=== PATIENT | female | born 1965 | race Caucasian/White ===

== ENCOUNTER 2017-03-03 08:15 | Observation (INO) | payer OTHER ==
[~2017-03-03] VITALS: Ht 162.6 cm; Wt 95.0 kg
[2017-03-03] VITALS (7 sets, daily range): BP systolic 111–184; BP diastolic 58–96; PULSE 64–75; RESP 15–21; TEMP 97.8–98.3; O2SAT 96–100
[~2017-03-03 08:15] MED LIST: ALPR-138 PO; MMW SS; PROZ40CA PO; SYNT50TA PO
--- NOTE | 2017-03-03 09:39 | PD ---
HPI Chief Complaint: Headache Time Seen by Provider: 09:27 Travel History International Travel<30 days: No Contact w/Intl Traveler<30days: No Traveled to known affect area: No History of Present Illness HPI 51yo F with PMH of factor V leiden deficiency presents to the ED with c/o right sided headache since yesterday. She woke up at 5am this morning and had "garbled speech" and difficulty articulating what she wanted to say. States this lasted about an hour and a half. Also had tingling in right face at the time. She went to bed normal last night. 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 She is suppose to be on thyroid medication but does not take it. Denies any focal weakness, chest pain, sob, n/v, abdominal pain or changes in vision. PFSH Past Medical History Depression: Yes COPD: Yes (CHRONIC BRONCHITIS) Diminished Hearing: No Menopausal: Yes : 3 Para: 1 Miscarriage: 1 : 1 Ovarian Cysts: Yes Social History Alcohol Use: Yes (OCCASIONAL) Tobacco Use: No (PT REPORTS SHE QUIT 4 MONTHS) Substance Use: No Allergies-Medications (Allergen,Severity, Reaction): Coded Allergies: Sulfa (Verified Allergy, Severe, 01/19/14) Reported Meds & Prescriptions Reported Meds & Active Scripts Active Magic Mouthwash-Diphenhy Formula (Lidocaine/Diphenhydr/Alum/Mg/Simeth) Ml 10 Ml SS Q3H PRN MAGIC MOUTHWASH=MIX 1/3 VISCOUS LIDOCAINE(60 ML),1/3 MAALOX(60 ML), AND 1/3 BENADRYL(60 ML) TO EQUAL 180 ML TOTAL VOLUME Reported Synthroid (Levothyroxine Sodium) 50 Mcg Tab 50 Mcg PO DAILY Prozac (Fluoxetine HCl) 40 Mg Cap 60 Mg PO DAILY Xanax (Alprazolam) 0.25 Mg Tab 0.25 Mg PO DAILYPRN Review of Systems Except as stated in HPI: all other systems reviewed are Neg Physical Exam Narrative GENERAL: 51yo F not in distress. SKIN: Focused skin assessment warm/dry. HEAD: Atraumatic. Normocephalic. EYES: Pupils equal and round at 4mm bilaterally. EOMI. No scleral icterus. No injection or drainage. ENT: No nasal bleeding or discharge. Mucous membranes pink and moist. NECK: Trachea midline. No JVD. CARDIOVASCULAR: Regular rate and rhythm. No murmur appreciated. RESPIRATORY: No accessory muscle use. Clear to auscultation. Breath sounds equal bilaterally. GASTROINTESTINAL: Abdomen soft, non-tender, nondistended. No rebound tenderness or guarding. MUSCULOSKELETAL: No obvious deformities. No clubbing. No cyanosis. No edema. NEUROLOGICAL: Awake and alert. No obvious cranial nerve deficits. Motor grossly within normal limits. Normal speech. NIH stroke scale 0 now. PSYCHIATRIC: Appropriate mood and affect; insight and judgment normal. Data Data Last Documented VS Vital Signs Date Time Temp Pulse Resp B/P Pulse Ox O2 Delivery O2 Flow Rate FiO2 03/03/17 10:30 70 16 141/83 100 Room Air 03/03/17 08:[address] Brain W/O Iv Contrast(Rout) (03/03/17 ) Complete Blood Count With Diff (03/03/17 09:34) Basic Metabolic Panel (Bmp) (03/03/17 09:34) Prothrombin Time / Inr (Pt) (03/03/17 09:34) Act Partial Throm Time (Ptt) (03/03/17 09:34) Electrocardiogram (03/03/17 ) Acetaminophen (Tylenol) (03/03/17 11:15) Code Status (03/03/17 11:30) Vital Signs (Adult) Q4H (03/03/17 11:30) Activity Oob With Assistance (03/03/17 11:30) Neurosurgical Nurse / Telemetry .CONTINUOUS (03/03/17 11:30) Diet Regular Basic (03/03/17 Lunch) Sodium Chloride 0.9% Flush (Ns Flush) (03/03/17 11:30) Sodium Chloride 0.9% Flush (Ns Flush) (03/03/17 21:00) Acetaminophen (Tylenol) (03/03/17 11:30) Ondansetron Inj (Zofran Inj) (03/03/17 11:30) Basic Metabolic Panel (Bmp) (03/04/17 06:00) Complete Blood Count With Diff (03/04/17 06:00) Chest, Single Ap (03/03/17 11:30) Pt Request For Service (03/03/17 11:30) Scd Bilateral/Knee High BAUDILIO.BID (03/03/17 11:30) Naloxone Inj (Narcan Inj) (03/03/17 11:30) Magnesium Hydroxide Liq (Milk Of Magnesi (03/03/17 11:30) Beta Hcg (Quant/Titer) (03/03/17 11:30) Consult Neurology (03/03/17 ) Nih Stroke Scale - Nihss .On admission and discharge (03/03/17 11:37) Activity Bed Rest (03/03/17 11:37) Nursing Bedside Swallow Assess .ONCE (03/03/17 11:37) Hemoglobin (Hgb) A1c (03/03/17 11:37) Lipid Profile (03/04/17 06:00) Us Carotid Arteries Comp Bilat (03/03/17 ) Holter Monitor Recording (03/03/17 ) Mra Brain W/O Contrast (Cow) (03/03/17 ) Mri Brain W/O Contrast (03/03/17 ) Enalaprilat Inj (Vasotec Inj) (03/03/17 11:45) Aspirin Chew (Aspirin Chew) (03/03/17 11:45) Admit Order (Ed Use Only) (03/03/17 11:49) Echo 2d Comp With Doppler (03/04/17 ) Labs Laboratory Tests Test 03/03/17 09:55 White Blood Count 5.1 TH/MM3 Red Blood Count 4.61 MIL/MM3 Hemoglobin 14.6 GM/DL Hematocrit 43.8 % Mean Corpuscular Volume 95.0 FL Mean Corpuscular Hemoglobin 31.7 PG Mean Corpuscular Hemoglobin 33.3 % Concent Red Cell Distribution Width 15.8 % Platelet Count 212 TH/MM3 Mean Platelet Volume 9.0 FL Neutrophils (%) (Auto) 60.0 % Lymphocytes (%) (Auto) 27.5 % Monocytes (%) (Auto) 8.5 % Eosinophils (%) (Auto) 2.7 % Basophils (%) (Auto) 1.3 % Neutrophils # (Auto) 3.1 TH/MM3 Lymphocytes # (Auto) 1.4 TH/MM3 Monocytes # (Auto) 0.4 TH/MM3 Eosinophils # (Auto) 0.1 TH/MM3 Basophils # (Auto) 0.1 TH/MM3 CBC Comment DIFF FINAL Differential Comment Prothrombin Time 10.2 SEC Prothromb Time International 0.9 RATIO Ratio Activated Partial 27.1 SEC Thromboplast Time Sodium Level 140 MEQ/L Potassium Level 4.0 MEQ/L Chloride Level 106 MEQ/L Carbon Dioxide Level 27.2 MEQ/L Anion Gap 7 MEQ/L Blood Urea Nitrogen 15 MG/DL Creatinine 0.59 MG/DL Estimat Glomerular Filtration 107 ML/MIN Rate Random Glucose 89 MG/DL Hemoglobin A1c 5.3 % Calcium Level 8.9 MG/DL Triglycerides Level 84 MG/DL Cholesterol Level 149 MG/DL LDL Cholesterol 63 MG/DL HDL Cholesterol 68.8 MG/DL Cholesterol/HDL Ratio 2.16 RATIO Free Thyroxine 1.13 NG/DL Thyroid Stimulating Hormone 2.780 uIU/ML 3rd Gen Human Chorionic Gonadotropin, 5 MIU/ML Quant MDM Medical Decision Making Medical Screen Exam Complete: Yes Emergency Medical Condition: Yes Interpretation(s) EKG: NSR 60bpm. Normal axis. TWI V2. Differential Diagnosis TIA vs. complex migraine vs. hypertensive emergency Narrative Course 51yo F with sudden onset garbled speech and inability to articulate her words this morning. This lasted an hour and a half along with tingling in right face. Pt has been having a right sided headache since yesterday so this may be complicated migraine. However, need to rule out TIA first. Pt given acetaminophen for her headache. CT brain negative. Labs reviewed, no leukocytosis. BMP unremarkable. Discussed with Dr. Trujillo from [facility] and accepted to his service. He had already ordered aspirin. Diagnosis Primary Impression: TIA (transient ischemic attack) Qualified Code: G45.9 - Transient cerebral ischemia, unspecified type Admitting Information Admitting Physician Requests: Barbara Soares DO Mar 03, 2017 09:39
[2017-03-03 10:39] LABS: AUTOMATED NEUTROPHIL # 3.1 TH/MM3 (1.8-7.7); BASOPHIL # 0.1 TH/MM3 (0-0.2); BASOPHIL % 1.3 % (0.0-2.0); EOSINOPHIL # 0.1 TH/MM3 (0-0.4); EOSINOPHIL % 2.7 % (0.0-4.0); HEMATOCRIT 43.8 % (35.0-46.0); HEMO FLAGS DIFF FINAL; LYMPH % 27.5 % (9.0-44.0); LYMPHOCYTE # 1.4 TH/MM3 (1.0-4.8); MEAN CORPUSCULAR HEMOGLOBIN 31.7 PG (27.0-34.0); MEAN CORPUSCULAR HGB CONC 33.3 % (32.0-36.0); MONO % 8.5 % (0.0-8.0); PLATELET COUNT 212 TH/MM3 (150-450); RED BLOOD COUNT 4.61 MIL/MM3 (4.00-5.30); RED CELL DISTRIBUTION WIDTH 15.8 % (11.6-17.2); WHITE BLOOD COUNT 5.1 TH/MM3 (4.0-11.0)
[2017-03-03 10:44] LABS: APTT (PATIENT) 27.1 SEC (24.3-30.1); INTERNATIONAL NORMALIZED RATIO 0.9 RATIO; PROTHROMBIN TIME - PATIENT 10.2 SEC (9.8-11.6)
[2017-03-03 10:53] LABS: BICARBONATE 27.2 MEQ/L (21.0-32.0)
[2017-03-03] MEDS ORDERED: ACETAMINOPHEN 325 MG TAB PO ONE (11:15)
--- NOTE | 2017-03-03 11:23 | RADRPT ---
EXAM DATE/TIME: 03/03/2017 10:54 [facility] COMPARISON: No previous studies available for comparison. INDICATIONS : Right-side headache, nausea, hypertension. RADIATION DOSE: 56.35 CTDIvol (mGy) ; Patient motion MEDICAL HISTORY : Chronic obstructive pulmonary disease. Clotting disorder. SURGICAL HISTORY : None. ENCOUNTER: Initial ACUITY: 1 day PAIN SCALE: 6/10 LOCATION: Right frontal TECHNIQUE: Multiple contiguous axial images were obtained of the head. Using automated exposure control and adj ustment of the mA and/or kV according to patient size, radiation dose was kept as low as reasonably a chievable to obtain optimal diagnostic quality images. DICOM format image data is available electro nically for review and comparison. FINDINGS: CEREBRUM: The ventricles are normal for age. No evidence of midline shift, mass lesion, hemorrhage or acute in farction. No extra-axial fluid collections are seen. POSTERIOR FOSSA: The cerebellum and brainstem are intact. The 4th ventricle is midline. The cerebellopontine angle i s unremarkable. EXTRACRANIAL: The visualized portion of the orbits is intact. SKULL: The calvaria is intact. No evidence of skull fracture. CONCLUSION: Negative for acute process. Eliceo Hector MD FACR on March 03, 2017 at 11:20 Board Certified Radiologist. This report was verified electronically.
[2017-03-03] MEDS ORDERED: ONDANSETRON HCL 4 MG/2 ML VIAL IVP PRN (11:30)
[2017-03-03] MEDS ORDERED: NALOXONE HCL 0.4 MG/ML AMP IV PRN (11:30)
[2017-03-03] MEDS ORDERED: MAGNESIUM HYDROXIDE SUSP 30 ML CUP PO PRN (11:30)
[2017-03-03] MEDS ORDERED: SODIUM CHLORIDE 0.9% FLUSH 10 ML FLUSH IV FLUSH PRN (11:30)
[2017-03-03] MEDS ORDERED: ENALAPRILAT 1.25 MG/ML VIAL IV PRN (11:45)
--- NOTE | 2017-03-03 11:46 | HHI.HP ---
HPI Service [facility] Hospitalists Primary Care Physician Ion Simmons MD Admission Diagnosis Transient neurological deficit Chief Complaint: headache, speech difficulty Travel History International Travel<30 Days: No Contact w/Intl Traveler <30 Da: No Traveled to Known Affected Are: No History of Present Illness Mrs Saab is a pleasant 51 y/o female with Factor V Leiden deficiency and hypothyroidism who presented to the ED with complaints of right sided headache that began yesterday and has been continuous. Described as a pressure like sensation behind her right eye, in the temporal region and on the right side of her forehead. She woke up this morning at 5am and had "garbled speech" and difficulty with word finding. This reportedly lasted about an hour and a half and then resolved. She also had tingling on the right side of her face at that time which has resolved. 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 Denies any focal weakness, chest pain, SOB, dizziness, vision changes, palpitations, N/V, or abdominal pain. She denies any previous similar episodes. Head CT in the ED was negative for any acute changes. Review of Systems Constitutional: DENIES: Fever, Chills, Dizziness Eyes: DENIES: Vision loss Ears, nose, mouth, throat: DENIES: Hearing loss Respiratory: DENIES: Cough, Shortness of breath Cardiovascular: DENIES: Chest pain, Palpitations, Lower Extremity Edema Gastrointestinal: DENIES: Abdominal pain, Diarrhea, Nausea, Vomiting Genitourinary: DENIES: Hematuria, Dysuria Musculoskeletal: DENIES: Joint pain Integumentary: DENIES: Rash Neurologic: COMPLAINS OF: Headache, Paresthesias, Speech Problems, DENIES: Localized weakness, Tremor Psychiatric: DENIES: Confusion, Depression Past Family Social History Past Medical History Factor V Leiden deficiency Chronic bronchitis Tobacco use Hypothyroidism Anxiety Vitamin D deficiency Past Surgical History Cyst removal off an ovary Reported Medications Pt has been off all medications. 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 HEENT: Atraumatic. Normocephalic. No temporal or scalp tenderness. No scleral icterus. Airway patent. NECK: Trachea midline, supple, nontender. CARDIO: Regular. RESP: CTA bilaterally. No wheezes, rales, or rhonchi. ABD: +BS, soft, non-tender, nondistended. EXT: Extremities without clubbing, cyanosis, or edema. NEURO: Awake and alert. Motor and sensory grossly within normal limits. Normal speech. Laboratory Laboratory Tests Test 03/03/17 09:55 White Blood Count 5.1 Red Blood Count 4.61 Hemoglobin 14.6 Hematocrit 43.8 Mean Corpuscular Volume 95.0 Mean Corpuscular Hemoglobin 31.7 Mean Corpuscular Hemoglobin 33.3 Concent Red Cell Distribution Width 15.8 Platelet Count 212 Mean Platelet Volume 9.0 Neutrophils (%) (Auto) 60.0 Lymphocytes (%) (Auto) 27.5 Monocytes (%) (Auto) 8.5 Eosinophils (%) (Auto) 2.7 Basophils (%) (Auto) 1.3 Neutrophils # (Auto) 3.1 Lymphocytes # (Auto) 1.4 Monocytes # (Auto) 0.4 Eosinophils # (Auto) 0.1 Basophils # (Auto) 0.1 CBC Comment DIFF FINAL Differential Comment Prothrombin Time 10.2 Prothromb Time International 0.9 Ratio Activated Partial 27.1 Thromboplast Time Sodium Level 140 Potassium Level 4.0 Chloride Level 106 Carbon Dioxide Level 27.2 Anion Gap 7 Blood Urea Nitrogen 15 Creatinine 0.59 Estimat Glomerular Filtration 107 Rate Random Glucose 89 Calcium Level 8.9 Result Diagram: 03/03/17 0955 03/03/17 0955 Imaging Last Impressions Head CT 03/03/17 0000 Signed Impressions: Service Date/Time: Friday, March 03, 2017 10:54 - CONCLUSION: Negative for acute process. Eliceo Hector MD FACR Septic Shock Reassessment Heart: Regular rate and rhythm Lungs: Clear Skin: Warm Assessment and Plan Problem List: (1) Transient neurologic deficit Status: Acute Plan: - Pt is a 51 y/o female with Factor V Leiden deficiency and hypothyroidism who presented to the ED with complaints of right sided headache that began yesterday and has been continuous. She woke up this morning at 5am and had "garbled speech" and difficulty with word finding which lasted about an hour and a half and then resolved. She also had tingling on the right side of her face at that time which has resolved. - Pt had noted elevated BP which is unusual for her and she presented to the ED for further evaluation. - Head CT in the ED was negative for any acute process. - Check MRI/MRA brain - Carotid US - Holter Monitor/Telemetry - 2D echo - ASA 162 mg po daily - Consult Neurology - Check cholesterol panel in AM - Check TSH/Free T4 - PT evaluation in AM - Monitor vitals closely - Supportive care - DVT prophylaxis with SCDs (2) Headache Status: Acute Plan: - See above. (3) Hypothyroidism Status: Chronic Plan: - Pt has been off her thyroid medication for several months - Check TSH/Free T4 Assessment and Plan Patient examined. Assessment and plan formulated with Alejandrina Chavira PA-C. I agree with the above. Physician Certification 2 Midnight Certification Type: Admission for Inpatient Services Order for Inpatient Services The services are ordered in accordance with Medicare regulations or non- Medicare payer requirements, as applicable. In the case of services not specified as inpatient-only, they are appropriately provided as inpatient services in accordance with the 2-midnight benchmark. Estimated LOS (days): 2 2 days is the estimated time the patient will need to remain in the hospital, assuming treatment plan goals are met and no additional complications. Post-Hospital Plan: Home Alejandrina Chavira Mar 03, 2017 11:46 Malvin Trujillo DO Mar 06, 2017 23:22
[2017-03-03] MEDS: ASPIRIN 81 MG CHEW TAB PO SCH (12:21)
--- NOTE | 2017-03-03 12:45 | RADRPT ---
EXAM DATE/TIME: 03/03/2017 11:41 [facility] COMPARISON: No previous studies available for comparison. INDICATIONS : Cough. MEDICAL HISTORY : Chronic obstructive pulmonary disease. SURGICAL HISTORY : None. ENCOUNTER: Initial ACUITY: 1 day PAIN SCORE: 0/10 LOCATION: Bilateral chest FINDINGS: A single view of the chest demonstrates the lungs to be symmetrically aerated without evidence of mas s, infiltrate or effusion. The cardiomediastinal contours are unremarkable. Osseous structures are intact. CONCLUSION: No acute disease. Eliceo Hector MD FACR on March 03, 2017 at 12:43 Board Certified Radiologist. This report was verified electronically.
--- NOTE | 2017-03-03 12:46 | RADRPT ---
EXAM DATE/TIME: 03/03/2017 12:03 [facility] COMPARISON: No previous studies available for comparison. INDICATIONS : Transient ischemic attack. MEDICAL HISTORY : Chronic obstructive pulmonary disease. Chronic bronchitis. Headaches. Ovarian cysts. SURGICAL HISTORY : None. ENCOUNTER: Initial ACUITY: 2 days PAIN SCORE: 2/10 LOCATION: Bilateral neck PEAK SYSTOLIC VELOCITIES (cm/sec): ICA/CCA RATIO: Right: 1.7 Left: 1.1 ICA: Right: 106 Left: 88 CCA: Right: 62 Left: 81 ECA: Right: 65 Left: 40 VERTEBRAL: Right: 62 antegrade Left: 62 antegrade Elevated flow velocities and ICA/CCA ratios have been found to correlate with increased degrees of vessel stenosis, calculated as percentage of diameter relative to a normal segment of distal ICA/CCA FINDINGS: RIGHT CAROTID: No significant stenosis is visualized. The waveforms are within normal limits. LEFT CAROTID: No significant stenosis is visualized. The waveforms are within normal limits. VERTEBRAL ARTERIES: Antegrade flow is seen in both vertebral arteries. MISCELLANEOUS: None. CONCLUSION: Negative for hemodynamically significant stenosis. Eliceo Hector MD FACR on March 03, 2017 at 12:43 Board Certified Radiologist. This report was verified electronically.
[2017-03-03 12:58] LABS: BETA HCG QUANT 5 MIU/ML (0-5)
[2017-03-03 13:08] LABS: FREE T4 1.13 NG/DL (0.76-1.46)
--- NOTE | 2017-03-03 15:06 | RADRPT ---
EXAM DATE/TIME: 03/03/2017 13:05 [facility] COMPARISON: No previous studies available for comparison. INDICATIONS : Slurred speech. Pain behind right eye. MEDICAL HISTORY : Clotting disorder. SURGICAL HISTORY : Ovarian cyst. ENCOUNTER: Initial ACUITY: 1 day PAIN SCORE: 4/10 LOCATION: head Please note a normal MRA of the brain does not entirely exclude the possibility of a small aneurysm, nor the possibility of distal intracranial vessel disease. TECHNIQUE: 3D time of flight MRA was performed. Source images, multiplanar STS MIP, and 3D volume MIP reconstru ctions were reviewed. FINDINGS: There is excellent visualization of the major intracranial arteries out to the second-order branch ve ssels. There is no evidence for aneurysm, vessel truncation or stenosis, and no evidence for vascula r malformation. CONCLUSION: Negative MRA of the brain. Eliceo Hector MD FACR on March 03, 2017 at 15:04 Board Certified Radiologist. This report was verified electronically.
--- NOTE | 2017-03-03 15:24 | RADRPT ---
EXAM DATE/TIME: 03/03/2017 13:05 [facility] COMPARISON: No previous studies available for comparison. INDICATIONS : Slurred speech. Pain behind right eye. MEDICAL HISTORY : Clotting disorder. SURGICAL HISTORY : Ovarian cyst. ENCOUNTER: Initial ACUITY: 1 day PAIN SCORE: 4/10 LOCATION: head TECHNIQUE: Multiplanar, multisequence MRI of the brain was performed without contrast. FINDINGS: CEREBRUM: The ventricles are normal for age. No evidence of midline shift, mass lesion, hemorrhage or acute in farction. No extraaxial fluid collections are seen. The pituitary gland and suprasellar cistern are normal in configuration. WHITE MATTER: No significant signal abnormalities are seen in the white matter. POSTERIOR FOSSA: The cerebellum and brainstem are intact. The 4th ventricle is midline. The cerebellopontine angle is unremarkable. The cerebellar tonsils are normal in position. DIFFUSION IMAGING: No focal areas of restricted diffusion are seen. No evidence of acute infarction. EXTRACRANIAL: The visualized portions of the orbits and paranasal sinuses are unremarkable. CONCLUSION: Negative for an acute process.. Eliceo Hector MD FACR on March 03, 2017 at 15:21 Board Certified Radiologist. This report was verified electronically.
[2017-03-03 17:01] LABS: HEMOGLOBIN A1a 0.8 %; HEMOGLOBIN A1b 1.5 %; HEMOGLOBIN Ao 85.6 %; HEMOGLOBIN LA1C 1.9 %; HEMOGLOBIN P3 3.6 %
--- NOTE | 2017-03-03 17:12 | MB ---
cc: LAZARO NGUYỄN M.D. DATE OF CONSULTATION 03/03/17 REASON FOR CONSULTATION She is a 51-year-old seen in neurological consultation in regards to TIA type of symptoms this morning. HISTORY OF PRESENT ILLNESS She had been having a headache since yesterday and this morning she woke up around 5:00 a.m. and developed some garbled speech, had word-finding difficulty and it lasted about an hour and a half and resolved. She still has some pressure behind her right eye but otherwise she is doing well. She has not been taking any medication. She had stopped the thyroid replacement. A couple of years ago she had a diagnosis of positive Factor V Leiden but she was not symptomatic and reportedly was told not to take any medication, not even aspirin. It appears that she saw a physician in this regard. NEUROLOGIC EXAMINATION The neurologic exam is completely normal except that I see very minimal flattening on the right nasolabial fold of questionable value. The reflexes were 1-2+ throughout and plantar responses flexor. LABORATORY DATA The laboratory data includes a normal chemistry. CBC was normal. IMAGING STUDIES Included MRI brain, carotid ultrasound, CT head and MRA head which were normal. ASSESSMENT Right-sided headache, new for her. Transient aphasia this morning, resolved. A history of positive Factor V Leiden, on no medications. I suggest at least aspirin therapy for now. I am requesting a sed rate on her and also a lipid profile. If these are all negative then she could be discharged with outpatient followup. As outpatient will consider also doing MRA neck but for now I feel the unremarkable carotid ultrasound is a reasonable evaluation. If her LDL is elevated that should be treated as well. Thank you for asking us to assist in her care. Please arrange for outpatient followup in a couple of weeks. Lazaro Nguyễn MD [facility]/KATHRIN /4:13 PM /4:58 PM
[2017-03-03] MEDS: ACETAMINOPHEN 325 MG TAB PO PRN (17:34)
[2017-03-03 20:23] LABS: HDL CHOLESTEROL 68.8 MG/DL (40.0-60.0)
[2017-03-03] MEDS: SODIUM CHLORIDE 0.9% FLUSH 10 ML FLUSH IV FLUSH SCH (21:00)
[2017-03-04 00:10] VITALS: BP_SYST 149; BP_SYST 154; BP_SYST 169; BP_DIAS 68; BP_DIAS 82; BP_DIAS 84; PULSE 78; RESP 18; TEMP 97.6; O2SAT 97
[2017-03-04] MEDS: ACETAMINOPHEN 325 MG TAB PO PRN ×2 (00:58→08:29)
[2017-03-04 07:33] LABS: AUTOMATED NEUTROPHIL # 2.9 TH/MM3 (1.8-7.7); BASOPHIL # 0.1 TH/MM3 (0-0.2); BASOPHIL % 1.3 % (0.0-2.0); EOSINOPHIL # 0.2 TH/MM3 (0-0.4); EOSINOPHIL % 4.1 % (0.0-4.0); HEMATOCRIT 41.8 % (35.0-46.0); HEMO FLAGS DIFF FINAL; LYMPH % 33.9 % (9.0-44.0); LYMPHOCYTE # 1.9 TH/MM3 (1.0-4.8); MEAN CELL VOLUME 94.3 FL (80.0-100.0); MEAN CORPUSCULAR HEMOGLOBIN 31.8 PG (27.0-34.0); MEAN CORPUSCULAR HGB CONC 33.8 % (32.0-36.0); NEUT % 51.7 % (16.0-70.0); PLATELET COUNT 185 TH/MM3 (150-450); RED BLOOD COUNT 4.44 MIL/MM3 (4.00-5.30); RED CELL DISTRIBUTION WIDTH 15.7 % (11.6-17.2); WHITE BLOOD COUNT 5.7 TH/MM3 (4.0-11.0)
[2017-03-04 07:50] VITALS: BP 118/74; PULSE 61; RESP 20; TEMP 97.8; O2SAT 95
[2017-03-04 08:20] VITALS: PULSE 59
[2017-03-04 08:21] LABS: POTASSIUM 3.9 MEQ/L (3.5-5.1)
[2017-03-04] MEDS: SODIUM CHLORIDE 0.9% FLUSH 10 ML FLUSH IV FLUSH SCH (08:28)
[2017-03-04] MEDS: ASPIRIN 81 MG CHEW TAB PO SCH (08:30)
--- NOTE | 2017-03-04 09:27 | HHI.PR ---
Subjective Remarks Pt overall feeling better today Still with a slight right sided headache Pt is anxious for discharge. Objective Vitals Vital Signs Date Time Temp Pulse Resp B/P Pulse Ox O2 Delivery O2 Flow Rate FiO2 03/04/17 07:50 97.8 61 20 118/74 95 03/04/17 00:10 97.6 78 18 149/84 97 154/82 169/68 03/03/17 20:55 65 03/03/17 20:13 16 03/03/17 19:28 98.3 71 17 111/58 96 03/03/17 16:01 98.1 64 21 126/82 96 03/03/17 14:30 75 15 135/96 97 Room Air 03/03/17 10:30 70 16 141/83 100 Room Air 03/03/17 09:50 15 98 Result Diagram: 03/04/17 0615 03/04/17 0615 Other Results Laboratory Tests Test 03/03/17 03/04/17 09:55 06:15 White Blood Count 5.1 TH/MM3 5.7 TH/MM3 Red Blood Count 4.61 MIL/MM3 4.44 MIL/MM3 Hemoglobin 14.6 GM/DL 14.1 GM/DL Hematocrit 43.8 % 41.8 % Mean Corpuscular Volume 95.0 FL 94.3 FL Mean Corpuscular Hemoglobin 31.7 PG 31.8 PG Mean Corpuscular Hemoglobin 33.3 % 33.8 % Concent Red Cell Distribution Width 15.8 % 15.7 % Platelet Count 212 TH/MM3 185 TH/MM3 Mean Platelet Volume 9.0 FL 9.4 FL Neutrophils (%) (Auto) 60.0 % 51.7 % Lymphocytes (%) (Auto) 27.5 % 33.9 % Monocytes (%) (Auto) 8.5 % 9.0 % Eosinophils (%) (Auto) 2.7 % 4.1 % Basophils (%) (Auto) 1.3 % 1.3 % Neutrophils # (Auto) 3.1 TH/MM3 2.9 TH/MM3 Lymphocytes # (Auto) 1.4 TH/MM3 1.9 TH/MM3 Monocytes # (Auto) 0.4 TH/MM3 0.5 TH/MM3 Eosinophils # (Auto) 0.1 TH/MM3 0.2 TH/MM3 Basophils # (Auto) 0.1 TH/MM3 0.1 TH/MM3 CBC Comment DIFF FINAL DIFF FINAL Differential Comment Prothrombin Time 10.2 SEC Prothromb Time International 0.9 RATIO Ratio Activated Partial 27.1 SEC Thromboplast Time Sodium Level 140 MEQ/L 139 MEQ/L Potassium Level 4.0 MEQ/L 3.9 MEQ/L Chloride Level 106 MEQ/L 106 MEQ/L Carbon Dioxide Level 27.2 MEQ/L 25.0 MEQ/L Anion Gap 7 MEQ/L 8 MEQ/L Blood Urea Nitrogen 15 MG/DL 15 MG/DL Creatinine 0.59 MG/DL 0.60 MG/DL Estimat Glomerular Filtration 107 ML/MIN 105 ML/MIN Rate Random Glucose 89 MG/DL 85 MG/DL Hemoglobin A1c 5.3 % Calcium Level 8.9 MG/DL 8.8 MG/DL Triglycerides Level 84 MG/DL 89 MG/DL Cholesterol Level 149 MG/DL 145 MG/DL LDL Cholesterol 63 MG/DL 65 MG/DL HDL Cholesterol 68.8 MG/DL 62.0 MG/DL Cholesterol/HDL Ratio 2.16 RATIO 2.33 RATIO Free Thyroxine 1.13 NG/DL Thyroid Stimulating Hormone 2.780 uIU/ML 3rd Gen Human Chorionic Gonadotropin, 5 MIU/ML Quant Erythrocyte Sedimentation Rate 13 mm/hr Imaging Last Impressions Chest X-Ray 03/03/17 1130 Signed Impressions: Service Date/Time: Friday, March 03, 2017 11:41 - CONCLUSION: No acute disease. Eliceo Hector MD FACR Head Magnetic Resonance Angiography 03/03/17 0000 Signed Impressions: Service Date/Time: Friday, March 03, 2017 13:05 - CONCLUSION: Negative MRA of the brain. Eliceo Hector MD FACR Head CT 03/03/17 0000 Signed Impressions: Service Date/Time: Friday, March 03, 2017 10:54 - CONCLUSION: Negative for acute process. Eliceo Hector MD FACR Carotid Artery Ultrasound 03/03/17 0000 Signed Impressions: Service Date/Time: Friday, March 03, 2017 12:03 - CONCLUSION: Negative for hemodynamically significant stenosis. Eliceo Hector MD FACR Brain MRI 03/03/17 0000 Signed Impressions: Service Date/Time: Friday, March 03, 2017 13:05 - CONCLUSION: Negative for an acute process.. Eliceo Hector MD FACR Objective Remarks General: NAD, AAOx3 Chest: CTA Cardiac: Regular Abd: +BS, soft ND/NT Ext: No edema A/P Problem List: (1) Transient neurologic deficit Status: Acute Plan: - Pt is a 51 y/o female with Factor V Leiden deficiency and hypothyroidism who presented to the ED with complaints of right sided headache that began yesterday and has been continuous. She woke up this morning at 5am and had "garbled speech" and difficulty with word finding which lasted about an hour and a half and then resolved. She also had tingling on the right side of her face at that time which has resolved. - Pt had noted elevated BP which is unusual for her and she presented to the ED for further evaluation. - Head CT in the ED was negative for any acute process. - MRI Brain --> Negative - MRA brain --> Negative - Carotid US --> Negative - Holter Monitor --> Pending - Telemetry --> Sinus justin into the high 40's during the night but otherwise NSR - 2D echo --> pending - ASA 162 mg po daily - Neurology is following. Pt should followup as an outpt with Neurology - Cholesterol panel with Total cholesterol 145, LDL, 65, HDL 62, Triglycerides 89 - TSH 2.78/Free T4 1.13 - Pt is stable for discharge home today once 2D echo performed and Holter monitor applied. Pt can drop the Holter monitor off tomorrow and can followup on results with her PCP. - She should continue on ASA as an outpt - She will need to followup as an outpt with Neurology for any further workup. - Pt should also establish with a Dye Range Operator regarding her Factor V Leiden deficiency for any further recommendations. (2) Headache Status: Acute Plan: - Improving - See above. (3) Hypothyroidism Status: Chronic Plan: - Pt has been off Synthroid for several months - TSH 2.780/Free T4 1.13 - Pt will need to follow back up with Endocrinology as an outpt as she has been having some symptoms of her hypothyroidism Assessment and Plan Patient examined. Assessment and plan formulated with Alejandrina Chavira PA-C. I agree with the above. Alejandrina Chavira Mar 04, 2017 09:27 Malvin Trujillo DO Mar 06, 2017 23:21
[2017-03-04] MEDS ORDERED: ASPI81CH CHEW (09:55)
--- NOTE | 2017-03-04 10:00 | HHI.DCPOC ---
Discharge Care Plan Diagnosis: (1) Transient neurologic deficit (2) Hypothyroidism (3) Headache (4) Factor V Leiden Goals to Promote Your Health - She should continue on Aspirin daily as an outpt - She will need to followup as an outpt with Neurology for any further workup. Schedule an appt with Dr. Nguyễn for 2 weeks - Pt should also establish with a Masking Machine Operator regarding her Factor V Leiden deficiency for any further recommendations. - Pt should establish with an County Health Officer for her hx of hypothyroidism and has been on/off medications - Pt has an appt with her PCP tomorrow Directions to Meet Your Goals Take your medications as prescribed Follow your dietary instruction Follow activity as directed Keep your appointments as scheduled Take your immunizations and boosters as scheduled If your symptoms worsen call your PCP, if no PCP go to Urgent Care Center or Emergency Room Smoking is Dangerous to Your Health. Avoid second hand smoke Call the 24-hour hour crisis hotline for domestic abuse at Alejandrina Chavira Mar 04, 2017 10:00 Malvin Trujillo DO Mar 06, 2017 23:22
--- NOTE | 2017-03-04 12:38 | ECHRPT ---
Indication: CVA/TIA CONCLUSIONS Normal left ventricular size and wall thickness. The left ventricular systolic function is normal wi th an estimated ejection fraction in the range of 55-60%. Left ventricular diastolic function parameters a re normal. The left atrial size is upper limits of normal. BP: / HR: 68 Rhythm: Sinus MEASUREMENTS (Male / Female) Normal Values Technical Quality:Good 2D ECHO LV Diastolic Diameter PLAX 4.4 cm 4.2 - 5.9 / 3.9 - 5.3 cm LV Systolic Diameter PLAX 3.3 cm IVS Diastolic Thickness 1.1 cm 0.6 - 1.0 / 0.6 - 0.9 cm LVPW Diastolic Thickness 1.1 cm 0.6 - 1.0 / 0.6 - 0.9 cm LV Relative Wall Thickness 0.5 LVOT Diameter 1.8 cm M-MODE Aortic Root Diameter MM 2.4 cm LA Systolic Diameter MM 4.1 cm LA Ao Ratio MM 1.7 AV Cusp Separation MM 1.7 cm DOPPLER AV Peak Velocity 121.0 cm/s AV Peak Gradient 5.9 mmHg LVOT Peak Velocity 102.0 cm/s LVOT Peak Gradient 4.2 mmHg AV Area Cont Eq pk 2.1 cm Mitral E Point Velocity 89.3 cm/s Mitral A Point Velocity 59.7 cm/s Mitral E to A Ratio 1.5 LV E' Lateral Velocity 10.9 cm/s Mitral E to LV E' Lateral Ratio 8.2 LV E' Septal Velocity 11.2 cm/s Mitral E to LV E' Septal Ratio 8.0 PV Peak Velocity 133.0 cm/s PV Peak Gradient 7.1 mmHg FINDINGS LEFT VENTRICLE Normal left ventricular size and wall thickness. The left ventricular systolic function is normal wi th an estimated ejection fraction in the range of 55-60%. Left ventricular diastolic function parameters a re normal. RIGHT VENTRICLE Normal right ventricular size and systolic function. LEFT ATRIUM The left atrial size is upper limits of normal. RIGHT ATRIUM The right atrial size is normal. ATRIAL SEPTUM Normal atrial septal thickness without atrial level shunting by limited color doppler interrogation. AORTA The aortic root and proximal ascending aorta are normal in size on limited imaging. MITRAL VALVE Structurally normal mitral valve. No mitral valve stenosis or regurgitation. AORTIC VALVE Trileaflet aortic valve. No aortic valve stenosis or regurgitation. TRICUSPID VALVE Structurally normal tricuspid valve. No tricuspid valve stenosis or regurgitation. PULMONARY VALVE The pulmonary valve is not well visualized. VESSELS The inferior vena cava is normal in size. PERICARDIUM No pericardial effusion. Jaskaran Carolina MD, FACC (Electronically Signed) Final Date:04 March 2017 12:36
--- NOTE | 2017-03-04 15:04 | EKG ---
Date Performed: 03/03/2017 Time Performed: 09:40:58 PTAGE: 51 years EKG: Sinus rhythm WITH SINUS ARRHYTHMIA NORMAL ECG PREVIOUS TRACING : 03/22/2010 16.18 Since previous tracing, no significant change noted DOCTOR: Leonora Wilkes Interpretating Date/Time 03/04/2017 15:03:42
--- NOTE | 2017-03-06 13:41 | HM ---
Date Performed: 03/04/2017 Time Performed: 10:14:00 HOOKUP DATE: 03/04/17 10:14:00 AM Mary ANALYSIS START TIME: 03/04/2017 10:19:00 AM ANALYSIS END TIME: 03/05/2017 5:42:31 AM PATIENT AGE: 51 PATIENT HEIGHT PATIENT WEIGHT DRUG LIST PATIENT DIAGNOSIS: Neuro/TIA/Afib TEST NARRATIVE: The patient's average heart rate was 87 BPM. Heart rates greater than 120 B PM were noted 2% of the time. Heart rates less than 50 BPM were noted < 1% of the time. No pause s exceeding 2.0 seconds were noted. 3 ventricular ectopics, which represented < 1% of the total b eat count, were noted. The highest ventricular ectopic frequency occurred from 04:00 PM to 05:00 PM Mary. During this time 2 VE(s) occurred. Ventricular ectopics were observed as 3 isolated beat(s) on ly. No couplets or runs were noted. 2 supraventricular ectopics, which represented < 1% of the t otal beat count, were noted. The highest supraventricular ectopic frequency occurred from 11:00 PM t o 12:00 AM Fri. During this time 2 SVE(s) occurred. No episodes of ST depression (defined as -1. 0 mm or more) were noted in channel 1. No episodes of ST depression (defined as -1.0 mm or more) wer e noted in channel 2. No episodes of ST depression (defined as -1.0 mm or more) were noted in channe l 3. TEST INTERPRETATION: The patient was monitored for 19 hours, 24 minutes. The minimum heart rate was 50 bpm. The maximum heart rate was 138 bpm with an average heart rate of 87 bpm. There were oc casional PVCs noted. CONCLUSION: Sinus tachycardia and occasional PVCs No significant arrhythmias No atrial fibrillation Signed by : Quentin Adams
== END 2017-03-04 13:22 | disposition home or self-care (01) ==
LOC: NEPD 08:15 → INTOOBSV 11:51 → NEDA 11:51 → NEPGCP 14:56
PROVIDERS: ADMIT Hospitalist; ATTEND Hospitalist
DX: G45.9 Transient cerebral ischemic attack, unspecified (principal); R51 Headache; E03.9 Hypothyroidism, unspecified; D68.2 Hereditary deficiency of other clotting factors; R00.0 Tachycardia, unspecified; I49.3 Ventricular premature depolarization; F32.9 Major depressive disorder, single episode, unspecified; F41.9 Anxiety disorder, unspecified; F17.210 Nicotine dependence, cigarettes, uncomplicated
CPT/HCPCS: 70450; 70544; 70551; 71010; 80048; 80061; 83036; 84439; 84443; 84702; 85025; 85610; 85652; 85730; 93005; 93225; 93226; 93306; 93880; 97161; 97530; 99285; G0378; G8987; G8988